=== PATIENT | male | born 1965 | race Caucasian/White ===

== ENCOUNTER 2018-10-25 13:28 | Emergency (ER) | payer SELFPAY ==
[~2018-10-25] VITALS: Ht 162.6 cm; Wt 91.0 kg
[2018-10-25 13:35] VITALS: BP 130/78
== END 2018-10-25 14:15 | disposition home or self-care (01) ==
LOC: ED 14:10
DX: L24.5 Irritant contact dermatitis due to other chemical products (principal)
CPT/HCPCS: 99283

== ENCOUNTER 2019-06-21 14:49 | Emergency (ER) | payer MEDICAID ==
[~2019-06-21] VITALS: Ht 162.6 cm; Wt 93.7 kg
[2019-06-21 15:04] VITALS: BP 146/80
--- NOTE | 2019-06-21 15:52 | NUR ---
SLEEP MANAGER: PT TO ROOM FROM LOBBY
--- NOTE | 2019-06-21 16:22 | NUR ---
[employer] STUDENT AT BEDSIDE FOR EVAL.
--- NOTE | 2019-06-21 17:09 | NUR ---
PT REQUESTING OINTMENT BEFORE DC. PHARMACY TO SEND.
--- NOTE | 2019-06-21 17:17 | NUR ---
Patient given discharge instructions and they have confirmed that they understand the instructions. Patient ambulatory with steady gait.
[2019-06-21] MEDS ORDERED: TRIAMCINOLONE CRM 0.1%, 15GM TP SCH (17:30)
== END 2019-06-21 17:28 | disposition home or self-care (01) ==
LOC: ED 17:22
DX: R21 Rash and other nonspecific skin eruption (principal); Z59.0 Homelessness
CPT/HCPCS: 99283